=== PATIENT | male | born 1995 | race Caucasian/White ===

== ENCOUNTER 2018-01-13 12:44 | Emergency (ER) | payer BC ==
[~2018-01-13] VITALS: Ht 188 cm; Wt 102.3 kg
[2018-01-13 12:46] VITALS: BP 152/89; PULSE 75; TEMP 98.4
== END 2018-01-13 14:30 | disposition home or self-care (01) ==
LOC: COL.ER 12:44
DX: S66.911A Strain of unspecified muscle, fascia and tendon at wrist and hand level, right hand, initial encounter (principal); W22.8XXA Striking against or struck by other objects, initial encounter